=== PATIENT | male | born 1970 | race Caucasian/White ===

== ENCOUNTER 2024-01-16 14:39 | Inpatient (IN) | payer OTHER, SELFPAY ==
[2024-01-16] VITALS (16 sets, daily range): BP systolic 118–162; BP diastolic 70–103; BMI 26.4; BMI 27.0
--- NOTE | 2024-01-16 08:29 | ED.GENMED ---
History of Present Illness
General
Chief Complaint: Alcohol Problem
Time Seen by Provider: 01/16/24 08:09
History of Present Illness
History of Present Illness:
53-year-old male with history of alcohol abuse and DTs presents to the emergency department for evaluation of periumbilical abdominal pain beginning last night. He admits to heavy drinking over the past week, so much that he cannot quantify.
States he had been sober for approximately 3 months prior to this. Reports nonbloody vomiting as well as black stool for the past several days as well. Pain is currently 10 out of 10, generalized and nonfocal. No fevers or chills. Denies NSAID
use but does admit to tobacco use. Prior abdominal surgical history includes laparoscopic inguinal hernia repair
Past History
Past History
ED Past Medical History: Psychiatric (Schizoaffective disorder, alcohol abuse)
ED Past Surgical History: Other (Hernia)
Social History
Tobacco: Smoker
Alcohol: Binge drinker
Drug: None and Cocaine
Personal: Single
Living: homeless (Versus homeless)
Employment: Not employed
Family History
Family History: Unable to obtain
Review of Systems
Review of Systems
Allergies reviewed?: Yes
All Other Systems: ROS reviewed and negative except as documented in HPI and ROS
Phy Exam
Physical Exam
Physical Exam:
GEN: Ill-appearing and visibly uncomfortable
Eyes: PERRLA, EOMs intact, no scleral icterus
HENT: NCAT, oral mucosa moist, no JVD
Lungs: CTAB, no wheezes, rales, rhonchi, normal chest wall excursion
Cardiac: Mildly tachycardic, no murmurs
Abdomen: Soft with generalized tenderness to all 4 quadrants
Neuro: AO x 3
MSK: No gross deformity or ecchymosis. No edema. No digital clubbing
Skin: No rashes, petechiae. Normal color, no pallor or jaundice.
Psych: Calm, cooperative, proper hygiene
Scores
Withdrawal Assessment of Alcohol
Withdrawal Assessment Completed?: Yes
Nausea and Vomiting: Intermittent nausea with dry heaves
Tactile Disturbances: Moderate itching, pins and needles , burning or numbness
Tremor: Moderate, with patient's arms extended
Auditory Disturbances: Not present
Paroxysmal Sweats: No sweat visible
Visual Disturbances: Very mild sensitivity
Anxiety: Moderately anxious, or guarded, so anxiety is inferred
Headache, Fullness in Head: Not present
Agitation: Moderately fidgety and restless
Orientation and clouding of sensorium: Oriented and can do serial additions
Total CIWA Score: 20
Alcohol Withdrawal Medication Recommendation: Equal to MSAS >11. Lorazepam 2-4mg IV NOW and re-assess q1hr
Course
Orders/Labs/Results
Orders:
Orders
01/16/24 08:16
HYDROmorphone [Dilaudid] 0.5 mg IV NOW STA
Lactated Ringers [Lr] 1,000 ml IV BOLUS
Ondansetron Injectable [Zofran] 4 mg IV NOW STA
01/16/24 08:36
Alcohol Urgent
Complete Blood Count/With Diff Urgent
Comprehensive Metabolic Panel Urgent
Lipase Urgent
01/16/24 09:06
CT Abd/Pel (IV only)-DH only Urgent
Comment:
Reason For Exam: periumbilical pain
01/16/24 09:55
Famotidine [Pepcid] 20 mg IV NOW STA
Pantoprazole [Protonix IV] 40 mg IV NOW STA
01/16/24 10:05
Lorazepam [Ativan] 1 mg IV NOW STA
01/16/24 10:33
Urinalysis Reflex To Culture Urgent
Date Specimen was Collected: 01/16/24
Time Specimen was Collected: 10:29
Urine Drug Abuse Screen Urgent
Date Specimen was Collected: 01/16/24
Time Specimen was Collected: 10:29
01/16/24 11:05
Lorazepam [Ativan] 2 mg IV NOW STA
01/16/24 11:07
Add On- LAB Urgent
Tests Added?: urine drug screen
01/16/24 13:17
Phenobarbital Sodium [Phenobarbital] 260 mg 0.9% Sodium Chloride 100 ml [Nss] 100 ml IV NOW
01/16/24 14:11
Admit/Transfer Patient As Directed
Co-Sign Provider:
Level of Care: Inpatient admission
Assign to:: Telemetry
Physician / Group: Fareed Rodríguez
Diagnosis: Alcohol Withdrawal
Reason for Telemetry: Other
Other Reason for Telemetry: Alcohol withdrawal
Date to Stop Telemetry: 01/18/24
Time to Stop Telemetry: 11:00
Reason for Hospitalization: as above
Expected length of stay greater than two midnights?: Yes
ELOS- Estimated Length of Stay in days: 3
I certify the patient meets the requirements for IP care: Yes
PRN Pain Medication Management As Directed
May give lesser potent ordered pain med per pt: Yes
preference::
Protocol:: Medication orders for pain may be administered in a
manner that supports deferring to patient preference
when the pt is:
- Requesting an ordered lesser potent pain medication.
Least to most potent pain medications are defined
as: acetaminophen < NSAID < tramadol < opioids
(morphine, oxycodone, hydromorphone).
- Requesting a lesser dose of the same medication IF
ORDERED.
- Requesting a less intrusive route of administration
if both routes are prescribed by the provider (PO <
IV).
01/16/24 14:13
Code Status As Directed
Resuscitation Status: Full Code
01/16/24 14:24
Mag Hydrox/Al Hydrox/Simeth [Maalox] 30 ml PO NOW STA
Pantoprazole [Protonix IV] 40 mg IV NOW STA
01/16/24 14:28
0.9% Sodium Chloride [Nss (Preservative Free)] 10 ml IV NOW STA
01/16/24 Dinner
Clear Liquid
01/18/24 11:00
DC Protocol for Telemetry ONCE
Abnormal Lab Results
01/16/24
08:36
Absolute Monos (auto) 0.7 H 10^3/uL
(0.1-0.6)
Monocytes % 11.9 H %
(1.7-9.3)
Chloride 110 H mmol/L
(98-107)
Carbon Dioxide 16 L mmol/L
(22-30)
AST 80 H U/L
(17-59)
ALT 97 H U/L
(0-50)
01/16/24 08:36
01/16/24 08:36
Vital Signs
Initial and Last Documented VS:
Initial Vital Signs
Temp Pulse Resp BP Pulse Ox
98.2 F 107 18 162/97 94
01/16/24 07:44 01/16/24 07:44 01/16/24 07:44 01/16/24 07:44 01/16/24 07:44
Last Documented Vital Signs
Temp Pulse Resp BP Pulse Ox
98.2 F 74 14 130/103 95
01/16/24 07:44 01/16/24 14:00 01/16/24 14:00 01/16/24 14:00 01/16/24 14:00
MDM/Problems Addressed
MDM/Problems Addressed:
Unfortunately we are unable to place this patient in a medical detox facility due to his uncontrolled psychiatric disorder. His withdrawal was treated with IV lorazepam and IV phenobarbital with good improvement. Given his history of DTs we will
admit for further monitoring and medical management. From a medical workup perspective his labs and imaging is unremarkable, I suspect his abdominal pain is potentially multifactorial due to withdrawal syndrome coupled with potential gastritis in
the setting of alcohol abuse, IV H2 blockers and PPI were given to treat for gastritis
*Critical Care Note
Total Time (30-74mins, 75-104mins- exclusive of procedures): Not Applicable
Update Note
Update Note:
We attempted placement through [facility] however as the patient has been noncompliant with his psychiatric meds for schizophrenia he would not be excepted to any inpatient detox facilities. Given his history of DTs will admit for
phenobarbital taper and further withdrawal monitoring, [facility] will follow along for placement upon discharge
ED Attending Note
-
Portions of this chart may have been created with voice recognition software.� Occasional wrong word or��sound alike� substitutions may have occurred due to the inherent limitations of voice recognition software.
Discharge Plan
Departure
Patient Disposition: Admit
Date of Disposition: 01/16/24
Time of Disposition: 12:59
Admit to: IMU
Presentation/result/management discussed w/ accepting MD/DO: Hospitalist
Discharge Problem:
Alcohol withdrawal
Prescriptions:
No Action
citalopram 40 mg tablet
40 mg PO DAILY
hydroxyzine pamoate 50 mg capsule
50 mg PO DAILY
hydroxyzine pamoate 50 mg capsule
100 mg PO HS
albuterol sulfate 90 mcg/actuation HFA aerosol inhaler
2 puff INHALATION R Q6HPRN PRN (Reason: sob/wheezing)
lurasidone 40 mg tablet
40 mg PO QPM
Referrals:
UNKNOWN,NO INTERVIEW [Family Provider] -
Interventions
Interventions:
*Risk Screen - Suicide Last Done: 01/16/24 08:20
*General Assessment Last Done: 01/16/24 08:20
*Neglect/Abuse Screening Last Done: 01/16/24 08:20
ED- Fall Risk Assessment Last Done: 01/16/24 08:20
*ED COVID-19 Vaccine History Last Done: 01/16/24 08:20
ED- Neurological Assessment Last Done: 01/16/24 08:20
ED-Psychological Assessment Last Done: 01/16/24 08:20
Discharge Date and Time
Print Language: ROMANIAN
--- NOTE | 2024-01-16 08:30 | EDRN ---
Received patient on stretcher rocking himself. Patient stated that he has been drinking a lot for the past 1 1/2 week. Patient stated 'a lot and whatever I can drink I drink' when asked how much he drinks a day. Patient stated that his last drink
was last night. Patient with c/o mid abdominal pain for the past couple of days. Patient stated that he was at [facility]' 3-4 days ago and he left after they told him that his kidney numbers were 'off'. Patient stated that he left
because he was scared. Patient stated that 'I am in too much pain to think about going anywhere for my drinking. I will think about it when I feel better.' Patient stated that 'I'm on psych meds but haven't taken them in several days. I have been
drinking.' +nausea.
[2024-01-16] MEDS: LR 1000 IV (08:40)
[2024-01-16] MEDS: ZOFRAN 4 MG IV (08:40)
[2024-01-16] MEDS: DILAUDID 0.5 MG IV (08:40)
[2024-01-16 08:51] LABS: % Basophils 0.6 % (0-2); % Eosinophils 1.8 % (0-6); % Immature Granulocytes 0.5 % (0-0.5); % Monocytes 11.9 % (1.7-9.3); % Neutrophils 59.2 % (42.2-75.2); Absolute Eosinophils 0.1 10^3/uL (0-0.7); Absolute Lymphocytes 1.6 10^3/uL (1.2-3.4); Absolute Monocytes 0.7 10^3/uL (0.1-0.6); Absolute Neutrophils 3.7 10^3/uL (1.4-6.5); Hematocrit 42.7 % (39.0-52.0); Hemoglobin 15.4 g/dL (13.0-18.0); Mean Corp Hgb Conc. 36.1 g/dL (33.0-37.0); Mean Corpuscular Hgb 30.3 pg (27.0-31.0); Mean Corpuscular Volume 84.1 fL (80.0-94.0); Mean Platelet Volume 9.5 fL (7.4-10.4); Nucleated Red Blood Cells % 0 % (-); Platelet Count 194 10^3/uL (130-400); Red Blood Cell Count 5.08 10^6/uL (4.70-6.10); Red Cell Dist. Width 13.4 % (11.5-14.5); White Blood Cell Count 6.2 10^3/uL (4.8-10.8)
[2024-01-16 09:02] LABS: ALT (SGPT) 97 U/L (0-50); AST (SGOT) 80 U/L (17-59); Albumin 4.6 g/dl (3.5-5.0); Alcohol 29 mg/dl; Alkaline Phosphatase 74 U/L (38-126); Blood Urea Nitrogen 16 mg/dl (9-20); Calcium 10.2 mg/dl (8.4-10.2); Carbon Dioxide 16 mmol/L (22-30); Chloride 110 mmol/L (98-107); Estimated Creatinine Clearance 114 ml/min; Glucose 91 mg/dl (70-99); Lipase 126 U/L (23-300); Potassium 4.4 mmol/L (3.5-5.1); Sodium 144 mmol/L (135-145); Total Bilirubin 0.4 mg/dl (0.2-1.3); Total Protein 7.1 g/dl (6.3-8.2); eGFR > 60.00
[2024-01-16] MEDS: ATIVAN 1 MG IV (10:25)
[2024-01-16] MEDS: PEPCID 20 MG IV (10:25)
[2024-01-16] MEDS: PROTONIX IV 40 MG IV ×2 (10:30→14:45)
[2024-01-16 10:43] LABS: Urine Albumin Negative (Neg - Trace); Urine Bilirubin Negative (Negative); Urine Character Clear (Clear); Urine Color Yellow; Urine Glucose Negative (Negative); Urine Ketone Negative (Negative); Urine Leukocyte Negative (Negative); Urine Nitrite Negative (Negative); Urine Occult Blood Negative (Negative); Urine Urobilinogen Negative (Neg - 1+)
[2024-01-16] MEDS: ATIVAN 2 MG IV (11:11)
--- NOTE | 2024-01-16 11:15 | EDRN ---
Patient medicated with additional dose of Ativan. Patient stopped shaking when he found out that he was getting more Ativan. Patient stated 'I need to be admitted so I can get the Ativan IV. I don't feel well and won't be able to go home without
it.' Vinnie from -[facility] will be into see the patient.
[2024-01-16 12:06] LABS: Amphetamines Negative (Negative); Barbiturates Negative (Negative); Benzodiazepines Negative (Negative); Buprenorphine Negative (Negative); Cocaine Negative (Negative); Marijuana Negative (Negative); Methadone Negative (Negative); Methamphetamines Negative (Negative); Opiates Negative (Negative); Phencyclidine Negative (Negative); Tricyclic Antidepressants Negative (Negative)
[2024-01-16] MEDS: PHENOBARBITAL 104 MG IV (13:45)
[2024-01-16] MEDS: NSS (PRESERVATIVE FREE) 10 ML IV (14:46)
--- NOTE | 2024-01-16 14:54 | HPS.HSE ---
Addendum entered and electronically signed by Fareed Rodríguez MD 01/16/24 15:52:
I personally performed a history and physical exam of the patient and discussed management with the resident. I reviewed the resident's note and agree with the documented findings and plan of care HPI/CC except change in my documentation.
53-year-old male with alcohol abuse presented to the hospital with heavy drinking he also had some nonbloody vomiting and dark stools , no diarrhea
CT pelvis-imaging limited inflammatory standing. Diffuse fatty infiltration of the liver. 13 mm hepatic cyst
Cardiovascular system S1-S2 appreciated
Chest clear to auscultation
Abdomen complains of mild tenderness. No guarding, Rectal Heme Neg
No pedal edema
Awake alert oriented no tremors noted at present
# Alcohol abuse,
Treat alcohol withdrawal
Alcoholic hepatitis
Urine drug screen is negative
Alcohol level 29
Abdominal pain likely secondary to gastritis CT scan without contrast unremarkable
Also took some Advil
Treat with Maalox and Protonix
Clear liquids
[facility] consulted
Psychiatry evaluation
# Questionable schizoaffective disorder-and anxiety-psychiatry evaluation
Continue Celexa, hydroxyzine, lurasidone
Latuda may not be a good medicine given his alcohol abuse-defer to psychiatry
# History of seizures-likely secondary to alcohol-not on meds
# Asthma-stable
# Active smoker-cessation counseling
# Drug abuse-used cocaine 1 month ago. Urine drug screen negative now.
# DVT prophylaxis-SCDS
# CODE STATUS-Full Code
Original Note:
Family Physician
-
Family Physician: None
Chief Complaint
-
Abdominal pain
History of Present Illness
This is a 53-year-old male with past medical history of schizoaffective disorder, alcohol abuse, delirium tremens who presents to ED complaining of generalized abdominal tenderness that began 1 week ago. Patient quantifies pain as 8 out of 10,
associated with nausea and nonbloody vomiting ongoing for the past 3 days. Patient admits to heavy drinking over the past week, although he cannot quantify his drinking. He admits to large amount of beer, liquor consumption last night. Patient
states he has been sober for approximately 3 months prior to his recent relapse last week. In addition to abdominal tenderness, patient complains of constipation ongoing for the past week. Reports dark stools. He admits to using 'Half Aleve' once
or twice a week for management of abdominal pain. He denies blood in vomitus.
Medical History
Past Medical History
Past Medical History: Reports Psychiatric and Other (Schizoaffective disorder, alcohol abuse, history of delirium tremens, history of multiple suicide attempts)
Past Surgical History: Reports Other (Laparoscopic inguinal hernia repair)
Social History
Tobacco: Smoker (1 pack a day for the past 20 years)
Alcohol: Chronic Alcoholic
Drug: Cocaine (Last used 1 month ago)
Personal: Single
Living: With Family
Employment: Not Employed
Family History
Family History: Other (History of alcoholism in brother, history of psychosis in sister)
Allergies / Home Medications
Allergy/Medication List:
Allergies
Allergy/AdvReac Type Severity Reaction Status Date / Time
Cephalosporins Allergy Rash Verified 07/27/22 12:18
penicillin G Allergy Rash Verified 07/27/22 12:18
Home Medications
albuterol sulfate 90 mcg/actuation aerosol inhaler 2 puff inhalation R Q6HPRN PRN sob/wheezing 01/16/24
citalopram 40 mg tablet 40 mg PO DAILY 01/16/24
hydroxyzine pamoate 50 mg capsule 50 mg PO DAILY 01/16/24
hydroxyzine pamoate 50 mg capsule 100 mg PO HS 01/16/24
lurasidone 40 mg tablet 40 mg PO QPM 01/16/24
Review of Systems
-
A 12 point ROS was completed and negative except as noted: Yes
Constitutional: Reports See HPI
Abdomen/GI: Reports See HPI
Physical Exam
Vital Signs
Vital Signs
Temp Pulse Resp BP Pulse Ox
98.2 F 74 14 130/103 95
01/16/24 07:44 01/16/24 14:00 01/16/24 14:00 01/16/24 14:00 01/16/24 14:00
Physical Exam
General: Appears in Distress
HEENT: Other (No scleral icterus, extraocular movements intact)
Respiratory: Clear; No Wheezes, Rales, Rhonchi or Crackles
Cardiac: S1/S2 and Regular Rhythm
GI: Soft, Non Distended, Normal Bowel Sounds, Tender (Tender in all 4 quadrants) and Other (No guarding,)
Rectal: Hem Negative
Musculoskeletal: No Edema
Neuro: Awake, Alert, Oriented and AO x 3
Psych: Intact Judgment/Insight
Laboratory Results
-
01/16/24 08:36
01/16/24 08:36
Laboratory Results
Total Bilirubin 0.4 mg/dl (0.2-1.3) 01/16/24 08:36
AST 80 U/L (17-59) H 01/16/24 08:36
ALT 97 U/L (0-50) H 01/16/24 08:36
Alkaline Phosphatase 74 U/L (38-126) 01/16/24 08:36
Lipase 126 U/L (23-300) 01/16/24 08:36
Data Reviewed
-
Lab Data: Labs Reviewed by me
Impression/Plan
-
Assessment
Alcohol withdrawal
Acute gastritis secondary to alcohol abuse vs NSAID use
Transaminitis
Hepatic cyst.
Schizoaffective disorder
Plan
#Alcohol withdrawal
Urine drug screen negative, alcohol level 29
MSAS protocol with phenobarbital
Supportive care with IV fluids, nutritional supplementation
Thiamine, folate
Clear liquids
#Acute gastritis secondary to alcohol abuse versus NSAID use
CT abdomen with IV contrast Diffuse fatty infiltration of the liver, There are no areas of pericolonic inflammatory stranding.
IV Protonix
#Transaminitis
Trend LFTs
#Schizoaffective disorder
Continue home meds hydroxyzine
Check EKG for prolonged QTc
Consult psychiatry
CODE STATUS: Full code
DVT prophylaxis: SCDs
--- NOTE | 2024-01-16 17:21 | EDRN ---
Patient taken to room 320-1 on monitor on stretcher by applied technologist.
[2024-01-16 18:35] LABS: Magnesium 1.9 mg/dl (1.6-2.3); Phosphorus 3.2 mg/dl (2.5-4.5)
[2024-01-16] MEDS: LATUDA 40 MG PO (19:43)
[2024-01-16] MEDS: THIAMINE INJECTION 200 MG IV (19:44)
[2024-01-16] MEDS: LUMINAL 97.2 MG PO (21:04)
[2024-01-16] MEDS: ATARAX 100 MG PO (21:06)
[2024-01-17 03:31] VITALS: BP 126/86
--- NOTE | 2024-01-17 06:21 | PTCARENOTE ---
Pt complained of '9/10 aching pain all over'. Pt requested something for pain management. SALON/SPA MANAGER made aware, order for tramadol obtained. Will continue to monitor.
[2024-01-17] MEDS: ULTRAM 50 MG PO (06:25)
[2024-01-17 06:32] LABS: Hematocrit 43.4 % (39.0-52.0); Hemoglobin 15.4 g/dL (13.0-18.0); Mean Corp Hgb Conc. 35.5 g/dL (33.0-37.0); Mean Corpuscular Hgb 30.9 pg (27.0-31.0); Mean Corpuscular Volume 87.1 fL (80.0-94.0); Mean Platelet Volume 9.6 fL (7.4-10.4); Platelet Count 170 10^3/uL (130-400); Red Blood Cell Count 4.98 10^6/uL (4.70-6.10); Red Cell Dist. Width 13.1 % (11.5-14.5); White Blood Cell Count 4.4 10^3/uL (4.8-10.8)
[2024-01-17 06:55] LABS: ALT (SGPT) 77 U/L (0-50); AST (SGOT) 55 U/L (17-59); Alkaline Phosphatase 73 U/L (38-126); Blood Urea Nitrogen 13 mg/dl (9-20); Calcium 9.1 mg/dl (8.4-10.2); Carbon Dioxide 23 mmol/L (22-30); Chloride 104 mmol/L (98-107); Estimated Creatinine Clearance > 125 ml/min; Glucose 88 mg/dl (70-99); Potassium 4.3 mmol/L (3.5-5.1); Sodium 138 mmol/L (135-145); Total Bilirubin 1.3 mg/dl (0.2-1.3); Total Protein 6.7 g/dl (6.3-8.2); eGFR > 60.00
[2024-01-17 07:31] VITALS: BP 149/93
[2024-01-17] MEDS: NSS (PRESERVATIVE FREE) 10 ML IV (07:55)
[2024-01-17] MEDS: PROTONIX IV 40 MG IV (07:55)
[2024-01-17] MEDS: LUMINAL PO (07:56)
[2024-01-17] MEDS: THIAMINE INJECTION 200 MG IV ×2 (07:57→19:57)
[2024-01-17] MEDS: FOLVITE 1 MG PO (07:57)
[2024-01-17] MEDS: ATARAX 50 MG PO (07:57)
[2024-01-17] MEDS: CELEXA 40 MG PO (07:57)
[2024-01-17] MEDS: LUMINAL 97.2 MG PO (10:07)
--- NOTE | 2024-01-17 10:23 | W.PN.HOSP.TC ---
Addendum entered and electronically signed by Fareed Rodríguez MD 01/17/24 15:00:
I personally performed a history and physical exam of the patient and discussed management with the resident. I reviewed the resident's note and agree with the documented findings and plan of care HPI/CC.
Late documentation
Patient did not have any symptoms of withdrawal such as tachycardia tremors or elevated blood pressure this morning when I evaluated him he was awake alert oriented
Abdominal pain better
Abdomen soft mild subjective tenderness no guarding or rigidity
Bowel sounds present
Chest clear to auscultation
No tremors noted
Continue phenobarbital taper however nursing reports that patient has been hiding phenobarbital in his bed and he had removed from his mouth and pocketed in the cheek.
Unclear if he has been drinking as he reported.
I would be very cautious in administering Ativan to him for his subjective symptoms especially if he is not taking phenobarbital.
Patient does not want to go to inpatient rehab he wants to go to [facility]
Psychiatry evaluation noted
I will cut back on his phenobarbitone especially since he has not been taking the higher doses.
Original Note:
Today's Communication/Plan
-
.
Assessment / Plan
Assessment / Plan
Assessment
Alcohol withdrawal
Acute gastritis secondary to alcohol abuse vs NSAID use
Transaminitis
Hepatic cyst.
Schizoaffective disorder
Plan
#Alcohol withdrawal
Urine drug screen negative, alcohol level 29
MSAS protocol-currently 0
Phenobarb taper
Supportive care with IV fluids, nutritional supplementation
Thiamine, folate
Clear liquids
#Acute gastritis secondary to alcohol abuse versus NSAID use
CT abdomen with IV contrast Diffuse fatty infiltration of the liver, There are no areas of pericolonic inflammatory stranding.
IV Protonix
#Transaminitis
LFTs trending down
Continue to monitor
#Schizoaffective disorder
Continue home meds hydroxyzine, Celexa, lurasidone
# History of seizures-likely secondary to alcohol-not on meds
# Asthma-stable
# Active smoker-cessation counseling
# Drug abuse-used cocaine 1 month ago. Urine drug screen negative now.
CODE STATUS: Full code
DVT prophylaxis: SCDs
Anticipated Discharge: Within 24 hours
Subjective/Interval History
-
Saw patient at bedside. Patient reports generalized abdominal tenderness improved from yesterday.
Objective Data
-
Labs:
Laboratory Results
01/17/24
06:01
WBC 4.4 L
Hgb 15.4
Hct 43.4
Plt Count 170
Sodium 138
Potassium 4.3
Chloride 104
Carbon Dioxide 23
BUN 13
Creatinine 0.7
Glucose 88
Calcium 9.1
Total Bilirubin 1.3
AST 55
ALT 77 H
Alkaline Phosphatase 73
Vital Signs:
Vital Signs
Temp Pulse Resp BP Pulse Ox
97.5 F 72 18 149/93 96
01/17/24 07:31 01/17/24 07:31 01/17/24 07:31 01/17/24 07:31 01/17/24 07:31
I&O
01/16/24 01/17/24 01/18/24
06:59 06:59 06:59
Output Total 300 / 300
Balance -300 / -300
Review of Systems
-
All other systems: Reviewed and negative (except as documented)
Physical Exam
-
General: No Apparent Distress and Comfortable
Respiratory: Clear to Auscultation; Negative Wheezes or Rales
Cardiac: Regular Rhythm and S1/S2
GI: Soft, Nondistended, Normal Bowel Sounds and Tender (generalized tenderness in all 4 quadrants. )
Musculoskeletal: No Edema
Skin: Warm and Dry
Neuro: Awake, Alert, Oriented and AO x 3
Psych: Calm
--- NOTE | 2024-01-17 10:25 | PTCARENOTE ---
Upon rounds PCT found 6 white pills in patient's bed. Pills were identified as Phenobarbital. Pt took them out of his mouth after previous shift (21:04) and current shift RNs administered. All 6 white pills wasted in Pyxis by me ware/ Steve Gonsalez RN.
New pills were removed for this AMs dose from Pyxis and administered to patient with proof of swallowing.
[2024-01-17 11:34] VITALS: BP 163/98
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
[2024-01-17 15:35] VITALS: BP 138/99
--- NOTE | 2024-01-17 15:40 | CM ---
Reviewed chart. Spoke with Psychiatry who stated that patient is known to her and indicated a full day partial. She stated to callKarina at [phone] to facilitate.
Met with patient at bedside to obtain information for assessment. Patient stated that he lives with his mother, father, and sister in a two story home with 4 steps to enter. He described himself as independent with his ADLs and personal care as well
as dressing and bathing. He admitted to some times need some assistance with ADLs. He described his parents as supportive. They cook, clean, do freight unloader and do laundry. Patient is unable to drive and stated that he walks to all of his
appointments and does the shopping.
Patient has no DME.
He has never had VN services.
He has not been to a SNF.
Patient has a prescription plan and uses [facility] in [facility] for all of his medications.
Patient's PCP is, not listed.
Patient was advised of indication on behalf of Psychiatry and he stated that he was/is in the [facility] program at [facility] and would like to return back to that.
Placed a call to Karina at [facility] [phone] (number provided by Psychiatry), and she stated that either patient would go to daily partial or back to [facility] and transferred call to [place] [phone]. She stated that between the two of them, they will
determine where patient will function best. Made Karina aware of indication from Psychiatry. Left Samm a voice mail message and requested return call so that patient can start or continue with his program upon discharge.
Patient stated that his parents will pick him up when he is medically cleared for discharge.
Plan: Case management will continue to follow and assist with discharge planning. Home with continuation of mental health and substance abuse program.
--- NOTE | 2024-01-17 16:20 | W.PN.UPDATE ---
Addendum entered and electronically signed by Fareed Rodríguez MD 01/17/24 16:28:
Agree with the plan
Original Note:
Update Note
Progress Note Update
Per Nurse information, Patient pocketing Phenobarbital. At this time will D/C phenobarbital. Will continue Lorazepam and monitor on MSAS.
[2024-01-17] MEDS: ATIVAN 0.5 MG PO ×2 (16:23→22:38)
--- NOTE | 2024-01-17 17:32 | PTCARENOTE ---
15:42- notified provider (resident) Lowell via TT re: elevated diastolic of 98 and 99 today. Response is 'will continue to monitor'.
[2024-01-17] MEDS: LATUDA 40 MG PO (18:03)
[2024-01-17 20:29] VITALS: BP 117/81
[2024-01-17] MEDS: ATARAX 100 MG PO (22:35)
--- NOTE | 2024-01-17 22:39 | PTCARENOTE ---
Pt ambulating hallway with steady gait. VSS. HR 80s-100s, afebrile, denies nausea or hallucinations. Pt states he feels anxious and depressed about home life situation. Pt states he feels sweaty although not noticeable to this RN. Pt requesting
ativan for anxiety/restlessness. PO Ativan given for MSAS of 5 see MAR.
--- NOTE | 2024-01-17 23:08 | VATNOTE ---
PT'S IV REMOVED DOCUMENTED. PT DECLINED TO HAVE A NEW IV SITE ESTABLISHED. EXPLIANED TO PT MULTIPLE REASONS INCLUDING HIS TELEMETRY STATUS WHY HE SHOULD HAVE AN IV ACCESS. PT STATES AN UNDERSTANDING. PCN MADE AWARE OF PTS DECISION.
[2024-01-17 23:31] VITALS: BP 124/85
[2024-01-18 03:10] VITALS: BP 124/81
[2024-01-18] MEDS: ATARAX 50 MG PO (09:40)
[2024-01-18] MEDS: FOLVITE 1 MG PO (09:40)
[2024-01-18] MEDS: CELEXA 40 MG PO (09:40)
[2024-01-18] MEDS: PROTONIX 40 MG PO (09:41)
--- NOTE | 2024-01-18 10:08 | CM ---
Received call back from Samm from [facility] program, . She left voicemail message. Returned her call however had to leave a voice mail. Spoke with resident who stated that patient should be ready for discharge today. Updated Samm that patient
is most likely leaving today on voicemail and asked her to f/u with patient.
Plan: Case management will continue to follow and assist with discharge planning. Home with resumption of program at [facility].
--- NOTE | 2024-01-18 10:33 | PTCARENOTE ---
Patient left AMA. Exited unit without notifying RN. RN caught up with Pt in oro. Unable to convince to return to unit and sign AMA paperwork. 'I have too many things I need to take care of today. I can't be here. You can sign papers for me'. No
IV line in at time of AMA d/c and pt removed telemetry equipment in rm. Provider notified.
--- NOTE | 2024-01-18 10:56 | W.PN.UPDATE ---
Update Note
Progress Note Update
Nursing reported that patient left AGAINST MEDICAL ADVICE before we rounded today. He refused to sign the form.
Reviewing the chart his labs are still pending this morning
Patient's MSAS score was 0 and he already has follow up set up with [facility] by case management.
--- NOTE | 2024-01-18 11:44 | W.DCSUMMARY ---
Discharge Summary
Discharge Data
Date of Admission: 01/16/24
Date of Discharge: 01/18/24
-
Pending Results: No
Hospital Course
Diagnosis:
1. Alcohol withdrawal
2. Acute gastritis secondary to alcohol use
3. Schizoaffective disorder
4. Alcohol use disorder
BRIEF HOSPITAL COURSE: This is a 53-year-old male who presented to ED 01/15 complaining of generalized abdominal tenderness ongoing for 1 week. He quantified pain as 8 out of 10. In addition, patient reported nausea and nonbloody vomiting
ongoing for 3 days. Patient admits to heavy drinking of beer and hard liquor over the past week, but cannot quantify the amount of drinks per day. He states he drinks 'a lot', admitting to drinking the night before presentation. On presentation
to the ED, CIWA score done in the ED 20. Patient was afebrile, with blood pressure 130/103, pulse 74, O2 sat 95% on room air. CT scan abdomen with IV contrast only showed diffuse fatty infiltration of the liver and a 13 mm hepatic cyst. Labs
showed elevated AST and ALT level. In the ER, his withdrawal was treated with IV lorazepam and IV phenobarbital with good improvement. He was continued on oral phenobarbital taper and lorazepam for treatment of alcohol withdrawal. Psychiatry was
consulted to evaluate patient. Patient stated he was not interested in inpatient rehab.
During his hospital stay, the nurse noted patient was pocketing phenobarbital. Phenobarbital was discontinued, and was continued on lorazepam and monitored on MSAS protocol which remained at 0. His LFTs trended down on the second day of
hospitalization
Today, nursing reported that the patient left AGAINST MEDICAL ADVICE before we rounded on him. He refused to sign the AMA form. His MSAS score today was 0, and he has a follow-up set up with [facility] by case management.
Discharge Plan
-
Patient Disposition: Against Medical Advice
Prescriptions:
No Action
citalopram 40 mg tablet
40 mg PO DAILY
hydroxyzine pamoate 50 mg capsule
50 mg PO DAILY
hydroxyzine pamoate 50 mg capsule
100 mg PO HS
albuterol sulfate 90 mcg/actuation HFA aerosol inhaler
2 puff INHALATION R [id number] PRN (Reason: sob/wheezing)
lurasidone 40 mg tablet
40 mg PO QPM
Discharge Date and Time
Discharge Date/Time: 01/18/24 10:55
Print Language: PERSIAN
== END 2024-01-18 10:55 | disposition left against medical advice (07) | DRG 894 ==
LOC: 3 WEST ACU 14:39
PROVIDERS: Physician Assistant; Student in an Organized Health Care Education/Training Program; ADMITTING PHYSICIAN Hospitalist; EMERGENCY PHYSICIAN Student in an Organized Health Care Education/Training Program; OTHER PHYSICIAN Psychiatry & Neurology Psychiatry
DX: F10.139 Alcohol abuse with withdrawal, unspecified (principal); F25.9 Schizoaffective disorder, unspecified; K70.10 Alcoholic hepatitis without ascites; K76.0 Fatty (change of) liver, not elsewhere classified; K76.89 Other specified diseases of liver; K29.20 Alcoholic gastritis without bleeding; F17.210 Nicotine dependence, cigarettes, uncomplicated; K29.00 Acute gastritis without bleeding; K59.00 Constipation, unspecified; Y90.1 Blood alcohol level of 20-39 mg/100 ml; R19.5 Other fecal abnormalities; Z53.29 Procedure and treatment not carried out because of patient's decision for other reasons; Z91.51 Personal history of suicidal behavior; Z87.19 Personal history of other diseases of the digestive system; Z81.8 Family history of other mental and behavioral disorders; Z81.1 Family history of alcohol abuse and dependence
CPT/HCPCS: 74177; 80053; 80306; 81003; 82077; 83690; 83735; 84100; 85025; 85027; 93005; 96374; 96375; 96376; 99285; Q9967